=== PATIENT | female | born 2000 | race Caucasian/White ===

== ENCOUNTER 2023-03-01 14:39 | Observation (INO) | payer SELFPAY ==
--- NOTE | ~2023-03-01 | US_ITS ---
EXAMINATION: US OB follow up DATE: 03/01/2023 16:35 INDICATION: Epigastric abdominal pain. TECHNIQUE: Real-time ultrasound of the pelvis was performed. COMPARISON: None. FINDINGS: There is a single living fetus in vertex presentation. The placenta is anterior and fundal. he art rate is 132 beats per minute (bpm). The cervical length is 4.0 cm on transabdominal images, which is normal. The amniotic fluid index is 19.7 cm, which is normal. The following biometric data were obtained: Biparietal diameter (BPD): 7.7 cm; head circumference (HC): 29.7 cm; abdominal circumference (AC): 29 .9 cm; femur length (FL): 5.8 cm. These measurements are discordant with FL/AC < 2 standard deviations of the mean. Estimated weight is 1982 g +/- 297 g, which correlates with the >97th percentile when 05/18/23 i s used as estimated date of delivery. As single measurements, these parameters are each equal to the following estimated gestational ages: BPD: 30 weeks 5 days. HC: 32 weeks 6 days. AC: 33 weeks 6 days. FL: 30 weeks 3 days. estimated gestational age based solely on measurements from this exam is 32 weeks 0 days +/- 2 weeks 2 days. IMPRESSION: 1. Single living fetus in vertex presentation. 2. Large for gestational age. Estimated weight is 1982 g +/- 297 g, which correlates with the >97th percentile when 05/18/23 is used as estimated date of delivery. 3. Discordant biometrics with low FL/AC. Reviewed, dictated and finalized at location A. IMPRESSION: 1. Single living fetus in vertex presentation. 2. Large for gestational age. Estimated weight is 1982 g +/- 297 g, whic h correlates with the >97th percentile when 05/18/23 is used as estimated date o f delivery. 3. Discordant biometrics with low FL/AC.
--- NOTE | ~2023-03-01 | US_ITS ---
EXAMINATION: US abdomen limited DATE: 03/01/2023 16:35 INDICATION: Epigastric abdominal pain. TECHNIQUE: Multiple grayscale and Doppler ultrasound images of the abdomen were obtained. COMPARISON: None FINDINGS: The pancreas is obscured by bowel gas. The liver is normal without focal lesion. There is n ormal flow in main portal vein. The gallbladder is contracted. No gallstones or sonographic Dexter si gn. The common duct is normal and measures 3 mm . IMPRESSION: 1. Normal right upper quadrant ultrasound. Reviewed, dictated and finalized at location A.
[2023-03-01 15:17] VITALS: BP 107/56; PULSE 89
[2023-03-01 15:30] VITALS: BP 113/68; PULSE 89
--- NOTE | 2023-03-01 15:30 | OBADM ---
This patient, Vidhi Villar, admitted to the OB room 117 for observation for epigastric burning. Patient/family oriented to hospital policies and general routines including ID bracelet, bed and alarms, visiting hours, pain management, procedures, bathroom and other care routines, personal items, smoking policy, room service/diet, and visiting hours. Patient/Family are encouraged to report perceived risks to care and to ask questions if they do not understand what they are told or what they should do.
[2023-03-01 15:45] VITALS: BP 106/61; PULSE 100
[2023-03-01] MEDS: DEXTROSE 5%/LACTATED RINGERS 1,000 ML 125 ML IV CONT (16:42)
[2023-03-01] MEDS: PANTOPRAZOLE SODIUM IV 40 MG VIAL IV PUSH (16:45)
[2023-03-01 16:56] VITALS: BMI 24.0
[2023-03-01 16:59] LABS: Basophils Percent Auto 0.1 % (0.2-1.2); Eosinophils Absolute Auto 0.1 K/mm3 (0-0.3); Eosinophils Percent Auto 0.7 % (0-4.4); Hematocrit 25.3 % (37.0-47.0); Immature Granulocyte Absolute 0.08 K/mm3 (0.00-0.031); Immature Granulocyte Percent A 0.6 % (0-0.5); Lymphocytes Absolute Auto 2.78 K/mm3 (0.9-3.2); Lymphocytes Percent Auto 20.6 % (18.3-44.2); Mean Corpuscular HGB Conc 31.6 g/dl (32-36); Mean Corpuscular Volume 75.7 fl (80-100); Mean Platelet Volume 11.6 fl (7.4-10.4); Monocytes Absolute Auto 1.3 K/mm3 (0.1-0.6); Monocytes Percent Auto 9.8 % (2.6-8.5); Neutrophils Absolute Auto 9.2 K/mm3 (1.3-6.7); Neutrophils Percent Auto 68.2 % (45.5-73.1); Nucleated Red Blood Cells Perc 0.1 % (0.0-0.2); Platelet Count Result 332 k/mm3 (150-375); Red Blood Count 3.34 M/mm3 (4.2-5.4); Red Cell Distribution Width 16.9 % (11.5-14.5); White Blood Count 13.5 K/mm3 (4.5-10.0)
[2023-03-01 17:02] LABS: Appearance Urine Clear (Clear); Bacteria Urine None Seen /hpf; Bilirubin Urine Negative (Negative); Blood Urine Negative (Negative); Color Urine Yellow (Yellow); Glucose Urine UA Negative (Negative); Ketones Urine Negative (Negative); Leukocyte Esterase Ur Trace LEU/UL (Negative); Nitrate Urine Negative (Negative); Non Pathogenic Casts 0-2; Protein Urine Negative (Negative); RBC Urine 0-2 /hpf (0-2); Specific Grav Ur 1.005 (1.001-1.035); Squamous Epithelial Cell Urine Occasional /hpf (Few); WBC Urine 0-5 /hpf
[2023-03-01 17:03] LABS: Add Urine Microscopic? YES
[2023-03-01 17:05] LABS: Alanine Aminotransferase 17 U/L (6-35); Albumin Level 3.5 g/dL (3.5-5.1); Alkaline Phosphatase 109 U/L (38-126); Anion Gap 8 mmol/L (8-16); Aspartate Amino Transferase 32 U/L (14-36); Bilirubin,Total 0.5 mg/dL (0.2-1.3); Blood Urea Nitrogen 2 mg/dL (7-17); Calcium 8.1 mg/dL (8.4-10.2); Carbon Dioxide 24 mmol/L (22-30); Chloride 103 mmol/L (98-107); Estimated Glomerular Filt Rate > 60; Glucose 89 mg/dL (65-110); Potassium 2.9 mmol/L (3.4-5.0); Sodium 135 mmol/L (137-145)
[2023-03-01 17:20] VITALS: BP 88/51; PULSE 82; RESP 18; TEMP 37.1
--- NOTE | 2023-03-01 17:42 | PC.NURSE ---
Dr. Gray returned call to exchange and notified of cancellation of consult.
[2023-03-01 18:00] VITALS: BP 113/76; PULSE 97
[2023-03-01] MEDS: POTASSIUM CHLORIDE INJ 40 MEQ in SODIUM CHLORIDE 0.9% IV 500 ML 130 MEQ IVPB (18:01)
--- NOTE | 2023-03-01 20:45 | PC.NURSE ---
Dr. Elizondo notified of pt request to go home after potassium infusion. Dr. Elizondo stated pt can go home with instruction to follow up with OB this week. Pt stated she is going to go to her OB in [place].
--- NOTE | 2023-03-25 19:12 | P.PNOB_ITS ---
OB - Triage/Final Diagnosis Visit Information Comments/Additional reasons for admission: I have assessed the risk for this patient, Vidhi Villar, and determined that she would benefit from observation care. Evaluation Laboratory results: Laboratory Tests 03/01/23 03/01/23 16:49 16:50 WBC 13.5 H RBC 3.34 L Hgb 8.0 L Hct 25.3 L MCV 75.7 L MCH 24.0 L MCHC 31.6 L RDW 16.9 H Plt Count 332 MPV 11.6 H Immature Gran % (Auto) 0.6 H Neut % (Auto) 68.2 Lymph % (Auto) 20.6 [place] % (Auto) 9.8 H Eos % (Auto) 0.7 Baso % (Auto) 0.1 L Lymph # (Auto) 2.78 [place] # (Auto) 1.3 H Eos # (Auto) 0.1 Baso # (Auto) 0.0 Abs Immat Gran (auto) 0.08 H Absolute Neuts (auto) 9.2 H Absolute Nucleated RBC 0.0 Nucleated RBC % 0.1 Sodium 135 L Potassium 2.9 L Chloride 103 Carbon Dioxide 24 Anion Gap 8 BUN 2 L Creatinine 0.30 L Estim Creat Clear Calc Not Reportable Estimated GFR > 60 Glucose 89 Calcium 8.1 L Total Bilirubin 0.5 AST 32 ALT 17 Alkaline Phosphatase 109 Total Protein 6.0 L Albumin 3.5 Urine Color Yellow Urine Appearance Clear Urine pH 8.0 Ur Specific Miracle 1.005 Urine Protein Negative Urine Glucose (UA) Negative Urine Ketones Negative Ur Blood (Man) Negative Urine Nitrate Negative Urine Bilirubin Negative Urine Urobilinogen 1.0 Leukocyte Esterase Rfl Trace H Urine RBC 0-2 Urine WBC 0-5 Ur Squamous Epith Cells Occasional Urine Bacteria None seen Urine Casts 0-2 Final Diagnosis (1) Epigastric pain: Code(s): R10.13 - Epigastric pain Status: Acute
== END 2023-03-01 22:24 | disposition home or self-care (01) ==
PROVIDERS: Admitting Provider Obstetrics & Gynecology; Visit Provider Obstetrics & Gynecology
DX: O26.93 Pregnancy related conditions, unspecified, third trimester (principal); R10.13 Epigastric pain; O36.63X0 Maternal care for excessive fetal growth, third trimester, not applicable or unspecified; Z3A.29 29 weeks gestation of pregnancy
CPT/HCPCS: 36415; 76705; 76816; 80053; 81001; 85025; 96374; 96375; C9113; G0378; G0379; J3480; J7040; J7121

== ENCOUNTER 2023-04-14 21:28 | Observation (INO) | payer OTHER, SELFPAY ==
[2023-04-14 21:43] VITALS: BP 106/53; PULSE 75
[2023-04-14 22:13] LABS: Add Urine Microscopic? YES; Appearance Urine Clear (Clear); Bacteria Urine Rare /hpf; Bilirubin Urine Negative (Negative); Blood Urine Negative (Negative); Color Urine Yellow (Yellow); Glucose Urine UA Negative (Negative); Ketones Urine Negative (Negative); Leukocyte Esterase Ur 3+ LEU/UL (Negative); Need Manual Microscopic Reviewed; Nitrate Urine Negative (Negative); Non Pathogenic Casts 0-2; Protein Urine Negative (Negative); RBC Urine 0-2 /hpf (0-2); Specific Grav Ur 1.005 (1.001-1.035); Squamous Epithelial Cell Urine Occasional /hpf (Few); WBC Urine 0-5 /hpf
[2023-04-14 22:24] VITALS: BMI 25.0
--- NOTE | 2023-04-14 22:25 | OBADM ---
This patient, Vidhi Villar, admitted to the OB room OB Post 117 for observation. Patient/family oriented to hospital policies and general routines including ID bracelet, bed and alarms, visiting hours, pain management, procedures, bathroom and other care routines, personal items, smoking policy, room service/diet, and visiting hours. Patient/Family are encouraged to report perceived risks to care and to ask questions if they do not understand what they are told or what they should do.
--- NOTE | 2023-04-14 22:42 | PC.NURSE ---
8 - patient arrives to unit with c/o sharp random pains in her vagina and a pulling pain when she moves around her lower abdomen . Patient denies any vaginal bleeding, leaking of fluid, sexual intercourse, or decreased movement. Patient states she has had a gallon of water to drink today. Patient denies any other concerns and states the pains do not feel like contractions. Patient sees Dr Watts at [facility] and has only had one visit with him and one visit as a triage patient where she had an US and got her CELENA of 05/11/23. 2154 - Dr Cohen on unit and informed of patient arrival and complaints. Orders to send a UA and call with results. Tracing reviewed by Dr Cohen at this time 2199 - [facility] is contacted to send over patient records. 2219 - Dr Cohen called via technical writer and editor and informed of UA results. Orders to DC patient to home with education on belly bands and slow movements that can help prevent round ligament pain and to have patient follow up with her OB provider. 2239 - Discharge instructions given to patient and patient verbalizes understanding. Paper copy of discharge instruction given to patient. 2242 - Patient ambulates off unit without complication at this time.
--- NOTE | 2023-04-17 08:51 | PM.OBTRLD ---
OB - Triage/Final Diagnosis Visit Information Comments/Additional reasons for admission: I have assessed the risk for this patient, Vidhi Villar, and determined that she would benefit from observation care. Evaluation Laboratory results: Laboratory Tests 04/14/23 21:54 Urine Color Yellow Urine Appearance Clear Urine pH 8.0 Ur Specific [place] 1.005 Urine Protein Negative Urine Glucose (UA) Negative Urine Ketones Negative Ur Blood (Man) Negative Urine Nitrate Negative Urine Bilirubin Negative Urine Urobilinogen 1.0 Add Ur Microanalysis Reviewed Leukocyte Esterase Rfl 3+ H Urine RBC 0-2 Urine WBC 0-5 Ur Squamous Epith Cells Occasional Urine Bacteria Rare Urine Casts 0-2 Final Diagnosis (1) Pelvic pain affecting : Code(s): O26.899 - Other specified related conditions, unspecified trimester; R10.2 - Pelvic and perineal pain Status: Acute
== END 2023-04-14 21:42 | disposition home or self-care (01) ==
PROVIDERS: Admitting Provider Obstetrics & Gynecology; Visit Provider Obstetrics & Gynecology
DX: O26.893 Other specified pregnancy related conditions, third trimester (principal); R10.2 Pelvic and perineal pain; Z3A.36 36 weeks gestation of pregnancy
CPT/HCPCS: 59025; 81001; G0378; G0379